=== PATIENT | female | born 1995 | race Caucasian/White ===

== ENCOUNTER 2020-12-19 02:31 | Outpatient (CLI) | payer OTHER, SELFPAY ==
[2020-12-19 18:38] LABS: SARS-CoV-2 RNA PCR Negative
== END 2020-12-19 02:32 | disposition home or self-care (01) ==
LOC: ANHCOVIDDT 02:31
PROVIDERS: Visit Provider Obstetrics & Gynecology
DX: N94.6 Dysmenorrhea, unspecified (principal); Z20.822 Contact with and (suspected) exposure to COVID-19; Z01.812 Encounter for preprocedural laboratory examination
CPT/HCPCS: C9803; U0003; U0005

== ENCOUNTER 2020-12-19 10:05 | Outpatient (CLI) | payer OTHER, SELFPAY ==
[2020-12-19 10:25] LABS: Basophils Absolute Auto 0.1 K/mm3 (0.0-0.1); Basophils Percent Auto 0.8 % (0.2-1.2); Eosinophils Absolute Auto 0.1 K/mm3 (0-0.3); Eosinophils Percent Auto 1.4 % (0-4.4); Hematocrit 39.6 % (37.0-47.0); Hemoglobin 12.8 g/dL (12.0-15.0); Immature Granulocyte Absolute 0.04 K/mm3 (0.00-0.031); Immature Granulocyte Percent A 0.6 % (0-0.5); Lymphocytes Absolute Auto 1.64 K/mm3 (0.9-3.2); Lymphocytes Percent Auto 25.2 % (18.3-44.2); Mean Corpuscular HGB Conc 32.3 g/dl (32-36); Mean Corpuscular Hemoglobin 27.8 pg (26-34); Mean Corpuscular Volume 86.1 fl (80-100); Mean Platelet Volume 11.4 fl (7.4-10.4); Monocytes Absolute Auto 0.4 K/mm3 (0.1-0.6); Monocytes Percent Auto 6.3 % (2.6-8.5); Neutrophils Absolute Auto 4.3 K/mm3 (1.3-6.7); Neutrophils Percent Auto 65.7 % (45.5-73.1); Platelet Count Result 282 k/mm3 (150-375); Red Cell Distribution Width 13.3 % (11.5-14.5); White Blood Count 6.5 K/mm3 (4.5-10.0)
== END 2020-12-19 10:06 | disposition home or self-care (01) ==
LOC: ANHSURGERY 10:09
PROVIDERS: PCP Family Medicine; Visit Provider Obstetrics & Gynecology
DX: N94.6 Dysmenorrhea, unspecified (principal); Z01.812 Encounter for preprocedural laboratory examination
CPT/HCPCS: 36415; 85025; 86850; 86900; 86901

== ENCOUNTER 2020-12-22 01:49 | Day surgery (SDC) | payer OTHER, SELFPAY ==
[2020-12-13 09:42] VITALS: BMI 20.9
--- NOTE | 2020-12-19 13:47 | PM.IMHP ---
H&P: HPI History of Present Illness Date/Time: 12/19/20 13:47 Chief Complaint: pain Narrative: Rhina Reese is a 25 year old female who is admitted for robotic hysterectomy bilateral salpingectomy. Patient has had 3 C sections and a tubal she has had chronic pain: Success for heavy bleeding in the colon the tolerated well the to blood pressures she opts for definitive therapy the hysterectomy risks and benefits reviewed full she had all questions answered asked to proceed Review of Systems Review of Systems: All systems reviewed & are unremarkable except as noted in HPI and below PMFSH Social History Social History Smoking status: Never smoker Second hand tobacco smoke exposure: No Alcohol intake: current Drinks per week: 1 Substance use: never Substance use type: does not use Spiritual care concerns: No Meds Home Medications and Allergies Home Medications Medication Instructions Recorded Confirmed Type desogestrel-ethinyl estradiol 0.15 tablet PO DAILY 12/13/20 12/13/20 History [Enskyce] Allergies Allergy/AdvReac Type Severity Reaction Status Date / Time NUTS Allergy Severe Swelling Uncoded 12/13/20 09:21 Exam Const: General: no acute distress Eyes: General: appearance normal, both eyes and all related structures Neck: Neck: supple and no JVD Thyroid: thyroid normal Resp: Effort & Inspection: normal respiratory effort Auscultation: clear to auscultation bilaterally Cardio: Rate: regular rate Rhythm: regular rhythm GI: Inspection: non-distended GI Palp: Yes Soft to palpation, No Tenderness to palpation present (GI) and No Guarding due to palpation present (GI) Auscultation: normal bowel sounds : General: Yes bladder normal to palpation External Female Exam: normal external appearance Speculum Exam - Vagina: normal vaginal discharge and No vaginal bleeding Speculum Exam - Cervix: nontender Bimanual exam- vagina & uterus: bladder normal to palpation and No Cervical tenderness present OB/external & speculum: No vaginal bleeding Skin: General skin exam: no rashes or lesions noted Extrem: General: normal to inspection and no edema Psych: Mental Status: mental status grossly normal Affect: normal affect Assessment and Plan Additional Plan impression:severe pelvic pain and dyspareunia refractory to medical therapy Plan: Robotic total hysterectomy and bilateral salpingectomies
[2020-12-22] VITALS (15 sets, daily range): BP systolic 99–134; BP diastolic 58–86; PULSE 55–100; RESP 11–20; TEMP 36.1–37.1; O2SAT 98–100
--- NOTE | 2020-12-22 06:27 | WPDHPUPDATE1 ---
History and Physical Update Update Date/Time: 12/22/20 06:27 History and Physical has been reviewed, including an updated exam of the patient. There are NO changes in the patient's condition. Risks, benefits, and alternatives have been discussed and questions answered. Patient agrees to proceed with procedure.
--- NOTE | 2020-12-22 08:15 | WPDANESEPPF ---
Anes - Initial Pre Proc Eval Procedure: Operation Date: 12/22/20 09:30 Proposed Procedures p Robotic Assisted Total Vaginal Hysterectomy With Bilateral Salpingectomy - Adrian Aldana MD Date/Time: 12/22/20 08:15 Surgeon: Adrian Aldana MD Pre Op Diagnosis: Uterine Prolapse, Irregular Bleeding Patient Data Age: 25 Gender: F Height: 5 ft 6 in Weight: 58.2 kg Last Vital Signs Temp 98.7 F 12/22/20 08:02 Pulse 100 12/22/20 08:02 Resp 20 12/22/20 08:02 BP 131/80 12/22/20 08:02 Pulse Ox 100 12/22/20 08:02 Allergies Allergy/AdvReac Type Severity Reaction Status Date / Time peanut Allergy Severe Swelling Verified 12/21/20 13:56 tree nut Allergy Severe Swelling Verified 12/21/20 13:56 NUTS Allergy Severe Swelling Uncoded 12/13/20 09:21 Home Medications Medication Instructions Recorded Confirmed Type desogestrel-ethinyl estradiol 0.15 tablet PO DAILY 12/13/20 12/13/20 History [Enskyce] hydrocodone-acetaminophen [[place]] 1 tablet PO Q4H PRN #30 tablet 12/22/20 Rx Patient hx anesthesia problems: none Family hx anesthesia problems: none PMFSH Past Medical History Medical History (Updated 12/22/20 @ 08:16 by Kuldeep Harry MD) Anxiety Migraine Social History Social History Smoking status: Never smoker Second hand tobacco smoke exposure: No Alcohol intake: current Drinks per week: 1 Substance use: never Substance use type: does not use Living arrangements: with family Spiritual care concerns: No Anes - Eval Final PreProcedure Day of Procedure 12/22/20 08:15 Patient weight: normal Heart: regular rate and rhythm Lungs: clear to auscultation Airway: Mallampati scale class II Neurological: alert and oriented Last oral intake: >/= 8 hours ASA classification: II Emergent: no Anesthetic plan: proceed Anesthesia type and monitoring: general ETT and standard monitoring Informed Consent: The patient's anesthetic plan and its attendant risks and benefits were discussed with the patient/family/POA. Questions were solicited and answers provided to the satisfaction of the patient/family/POA.
[2020-12-22] MEDS: ACETAMINOPHEN 500 MG TABLET 1000 MG PO (08:25)
[2020-12-22] MEDS: LACTATED RINGERS 1,000 ML 30 ML IV CONT ×2 (08:45→10:03)
[2020-12-22] MEDS: KETOROLAC 15 MG/ML VIAL (*BKC) IV PUSH (08:45)
[2020-12-22] MEDS: ceFAZolin 2 GM/D5W 50 ML 2 GM/50 ML BAG IVPB (08:50)
--- NOTE | 2020-12-22 09:57 | P.OP_ITS ---
Procedure Note - Detailed Date of procedure: 12/22/20 Pre-op diagnosis: Uterine Prolapse, Irregular Bleeding Surgeon: Adrian Aldana MD Postop diagnosis: Uterine prolapse/irregular bleeding Procedure: Robotic total vaginal hysterectomy and bilateral salpingectomies Anesthesia: General endotracheal EBL: 20cc Findings: Uterine prolapse tubes status post tubal ligation. Normal-appearing ovaries Complications: None Description of procedure: Patient was prepped and draped in the normal sterile fashion and placed in the dorsal lithotomy position. Under excellent general endotracheal anesthesia weighted speculum was placed in posterior fornix vagina. The anterior lip of the cervix was grasped with a single-tooth tenaculum. The uterus sounded to 9cm. Serial dilatation with fragmented dilators performed followed by passes 8. ELIZA and the 2. And half cold. A 16 Welsh catheter was placed bladder drained clear urine. The remainder the instruments removed. Gloves were changed. An supraumbilical incision made. Veress needle passed in the abdomen abdomen filled with CO2 gas [id number]. The 8mm trocar advanced in the abdomen. The downside visualized and no injury seen. The patient placed in Trendelenburg and right and left lateral quadrant incisions made. The 8mm trocars advanced under direct visualization assuring no injury. A right upper quadrant incision made in the 8mm trocar advanced under direct visualization assuring no injury. The robot was docked Attention was turned to the residential substance abuse counselor. The left round ligament was grasped, burned, cut. At bladder flap was formed by sharply dissecting the bladder and reflecting it caudally from the cervix and uterus to the opposite round ligament which was clamped, burned, cut. Next the left fallopian tube was dissected away using sharp dissection and scissors with cauterization. This was repeated on the contralateral side remove the right tube. The ovaries both appeared within normal limits. The utero-ovarian on the left was clamped, burned, cut and brought to the level of previously cut round ligament conserving the left ovary. The utero-ovarian ligament on the right was clamped, burned, and brought to the level of the previously cut round ligament conserving the right ovary. Next the left cardinal and broad ligaments were serially skeletonized. These were clamped, burned, cut and brought down the lateral edge of the cervix and uterus until the uterine vessels could be seen on the left. These were large and tortuous and individually clamped, burned, cut. On the right the cardinal broad ligaments were serially skeletonized. These were clamped, burned, cut and brought down to the level of the uterine vessels. When these could be visualized they were individually clamped, burned, cut and blanching of the uterus was seen a colpotomy incision was made the cervix uterus and tubes removed through the vagina. Blood loss estimated at20cc the vagina was then closed with continuous running 0V lock from lateral edge to lateral edge back to the midline. Irrigation undertaken to clear in all pedicles appeared dry. The robot was removed the gas removed from the abdomen the trocar sites removed and the incisions closed with 4 O Monocryl and glue. Blood loss was estimated at20cc all sponge, needle, instrument counts were correct. Patient was awakened and went to recovery in satisfactory condition there were no immediate complications
[2020-12-22] MEDS: HYDROmorphone HCL INJ (*CRX) 1 MG/ML SYR 0.5 MG IV PUSH ×3 (10:42→11:07)
--- NOTE | 2020-12-22 11:02 | SUR.PHASEI ---
110 sbar faxed floor notified
--- NOTE | 2020-12-22 11:25 | ADMGEN ---
This patient, Rhina Reese, was admitted to OB 2nd Floor Room 279-00. Patient/family oriented to hospital policies and general routines including ID bracelet, bed and alarms, visiting hours, pain management, procedures, bathroom and other care routines, personal items, smoking policy, room service/diet, and visiting hours. Information on how to activate the Rapid Response Team has been discussed. Patient/Family are encouraged to report perceived risks to care and to ask questions if they do not understand what they are told or what they should do.
[2020-12-22] MEDS: ONDANSETRON INJ 4 MG/2 ML VIAL IV PUSH (12:38)
[2020-12-22] MEDS: DEXTROSE 5%/LACTATED RINGERS 1,000 ML 125 ML IV CONT (12:40)
[2020-12-22] MEDS: SIMETHICONE 80 MG TAB.CHEW PO (12:42)
[2020-12-22] MEDS: DOCUSATE SODIUM 100 MG CAPSULE PO (17:39)
[2020-12-23 04:00] VITALS: BP 112/72; PULSE 66; RESP 16; TEMP 36.9; O2SAT 100
[2020-12-23 05:51] LABS: Basophils Percent Auto 0.3 % (0.2-1.2); Eosinophils Absolute Auto 0.1 K/mm3 (0-0.3); Eosinophils Percent Auto 0.8 % (0-4.4); Hemoglobin 10.9 g/dL (12.0-15.0); Immature Granulocyte Absolute 0.05 K/mm3 (0.00-0.031); Immature Granulocyte Percent A 0.5 % (0-0.5); Lymphocytes Absolute Auto 3.16 K/mm3 (0.9-3.2); Lymphocytes Percent Auto 28.4 % (18.3-44.2); Mean Corpuscular HGB Conc 32.1 g/dl (32-36); Mean Corpuscular Hemoglobin 27.7 pg (26-34); Mean Corpuscular Volume 86.3 fl (80-100); Mean Platelet Volume 12.3 fl (7.4-10.4); Monocytes Absolute Auto 0.8 K/mm3 (0.1-0.6); Monocytes Percent Auto 7.3 % (2.6-8.5); Neutrophils Percent Auto 62.7 % (45.5-73.1); Platelet Count Result 207 k/mm3 (150-375); Red Blood Count 3.94 M/mm3 (4.2-5.4); Red Cell Distribution Width 13.5 % (11.5-14.5); White Blood Count 11.1 K/mm3 (4.5-10.0)
[2020-12-23] MEDS: IBUPROFEN 600 MG TABLET PO (06:00)
--- NOTE | 2020-12-23 08:00 | PC.NURSE ---
Pt introductions made and plan of care discussed per post op director of development surgery, daily care activities, pain management, and pending discharge to home. PT verbalized understanding of such care.
[2020-12-23] MEDS: SIMETHICONE 80 MG TAB.CHEW PO (08:20)
[2020-12-23] MEDS: DOCUSATE SODIUM 100 MG CAPSULE PO (08:20)
[2020-12-23] MEDS: ENOXAPARIN 40 MG/0.4 ML SYRINGE SUB-Q (08:21)
[2020-12-23 08:32] VITALS: BP 115/74; PULSE 96; RESP 18; TEMP 37; O2SAT 100
--- NOTE | 2020-12-23 09:49 | P.PNAN_ITS ---
Anes - Prog Note Post-Op Date/Time: 12/23/20 09:49 Cardiovascular status: normal Respiratory status: normal Airway patency: baseline Mental status: baseline Post-Op hydration status: normal Vital Signs: Last Vital Signs Temp 37.0 C 12/23/20 08:32 Pulse 96 12/23/20 08:32 Resp 18 12/23/20 08:32 BP 115/74 12/23/20 08:32 Pulse Ox 100 12/23/20 08:32 Pain Score (VAS): 12/10 I/O: Intake & Output 12/22/20 12/23/20 12/23/20 23:59 07:59 15:59 Intake Total 787 Output Total 150 Balance 637 Laboratory Tests 12/23/20 03:53 12/23/20 03:53 WBC 11.1 H RBC 3.94 L Hgb 10.9 L Hct 34.0 L MCV 86.3 MCH 27.7 MCHC 32.1 RDW 13.5 Plt Count 207 MPV 12.3 H Immature Gran % (Auto) 0.5 Neut % (Auto) 62.7 Lymph % (Auto) 28.4 [place] % (Auto) 7.3 Eos % (Auto) 0.8 Baso % (Auto) 0.3 Lymph # (Auto) 3.16 [place] # (Auto) 0.8 H Eos # (Auto) 0.1 Baso # (Auto) 0.0 Abs Immat Gran (auto) 0.05 H Absolute Neuts (auto) 7.0 H Absolute Nucleated RBC 0.0 Nucleated RBC % 0.0 Post-procedural complaints: none Patient Feedback: Patient satisfied with anesthetic care.
--- NOTE | 2020-12-23 09:56 | PM.GYNPNOP ---
VOLUNTEER FIREFIGHTER - A/P Postoperative Procedures: Procedures Operation Date: 12/22/20 09:30 Actual Procedures Side Surgeon p Robotic Assisted Total Vaginal Hysterectomy With Bilateral Salpingectomy Adrian Aldana MD A: POD#1, doing well. P: Home to f/u 2 weeks. Time Spent With Patient Time with patient: less than 15 minutes V[employer]UNTEER FIREFIGHTER- PN:Subj Post-Op Subjective Date/time seen: 12/23/20 09:56 Interval history: Pain OK. Tolerating diet. Voiding. Would like to go home. Exam Narrative: Exam Narrative: AVSS I/O OK ABD soft, nontender. Incisions c/d/i. EXT nontender VOLUNTEER FIREFIGHTER - PN: Obj Data Vital Signs Vital Signs: Vital Signs - 24 hr 12/22/20 10:03 12/22/20 10:15 12/22/20 10:30 Temperature 36.1 C L Pulse Rate 72 55 L 76 Respiratory Rate 16 20 15 Blood Pressure 120/77 99/58 L 113/78 Pulse Oximetry 100 100 100 12/22/20 10:50 12/22/20 11:05 12/22/20 11:25 Temperature Pulse Rate 63 61 Respiratory Rate 12 11 L Blood Pressure 114/74 113/84 Pulse Oximetry 100 100 100 12/22/20 11:30 12/22/20 11:45 12/22/20 12:30 Temperature 36.6 C 36.8 C Pulse Rate 66 75 76 Respiratory Rate 16 16 16 Blood Pressure 119/84 122/80 134/86 Pulse Oximetry 100 100 100 12/22/20 13:00 12/22/20 14:00 12/22/20 15:00 Temperature 36.7 C Pulse Rate 97 84 82 Respiratory Rate 16 16 16 Blood Pressure 118/79 124/84 122/83 Pulse Oximetry 100 100 98 12/22/20 16:30 12/22/20 21:06 12/23/20 04:00 Temperature 36.7 C 36.9 C Pulse Rate 75 66 Respiratory Rate 16 14 16 Blood Pressure 115/66 112/72 Pulse Oximetry 100 100 100 12/23/20 08:32 Temperature 37.0 C Pulse Rate 96 Respiratory Rate 18 Blood Pressure 115/74 Pulse Oximetry 100 Intake/Output Intake/Output: Intake & Output 12/20/20 12/21/20 12/22/20 12/23/20 23:59 23:59 23:59 23:59 Intake Total 837 Output Total 350 Balance 487 Meds/Results Medications: Active Medications Generic Name Dose Route Start Last Admin Trade Name Freq PRN Reason Stop Dose Admin Hydrocodone Bitart/Acetaminophen 1 tab 12/22/20 11:21 Hydrocodone/Acetaminophen (*Crx) 5-325 Mg Tablet PO Q3H PRN Pain Rated 5 or Less Hydrocodone Bitart/Acetaminophen 1 tab 12/22/20 11:21 Hydrocodone/Acetaminophen (*Crx) 10-325 Mg Tablet PO Q3H PRN Pain Rated 6 or Greater Docusate Sodium 100 mg 12/22/20 17:00 12/23/20 08:20 Docusate Sodium 100 Mg Capsule PO 100 mg BID SOM Administration Enoxaparin Sodium 40 mg 12/23/20 09:00 12/23/20 08:21 Enoxaparin 40 Mg/0.4 Ml Syringe SUB-Q 40 mg DAILY SOM Administration Dextrose/Lactated Ringer's 1,000 mls @ 125 mls/hr 12/22/20 11:21 12/23/20 04:38 Dextrose 5%/Lactated Ringers IV CONT Not Given .Q8H SOM Ibuprofen 600 mg 12/22/20 11:21 12/23/20 06:00 Ibuprofen 600 Mg Tablet PO 600 mg Q6H PRN Administration Cramping Ketorolac Tromethamine 30 mg 12/22/20 11:21 Ketorolac 30 Mg/Ml Vial (*Bkc) IV PUSH 12/27/20 11:22 Q6H PRN Pain Rated 4-6 Morphine Sulfate 4 mg 12/22/20 11:21 Morphine Sulfate (*Crx) 4 Mg/Ml Inj IV PUSH Q4H PRN Severe breakthrough pain Naloxone HCl 0.1 mg 12/22/20 11:21 Naloxone Hcl 0.4 Mg/Ml Vial IV PUSH Q2M PRN Respiratory rate less than 10 Ondansetron HCl 4 mg 12/22/20 11:21 12/22/20 12:38 Ondansetron Inj 4 Mg/2 Ml Vial IV PUSH 4 mg Q6H PRN Administration Nausea And Vomiting Simethicone 80 mg 12/22/20 11:21 12/23/20 08:20 Simethicone 80 Mg Tab.Chew PO 80 mg Q2H PRN Administration Gas Labs CBC & Chem 7: 12/23/20 03:53 Labs: Laboratory Results - last 24 hr 12/23/20 03:53 WBC 11.1 H RBC 3.94 L Hgb 10.9 L Hct 34.0 L MCV 86.3 MCH 27.7 MCHC 32.1 RDW 13.5 Plt Count 207 MPV 12.3 H Immature Gran % (Auto) 0.5 Neut % (Auto) 62.7 Lymph % (Auto) 28.4 [place] % (Auto) 7.3 Eos % (Auto) 0.8 Baso % (Auto) 0.3 Lymph # (Auto) 3.16 [place]
--- NOTE | 2020-12-23 12:15 | PC.NURSE ---
PT received discharge instructions per protocol and pt verbalized understanding of such instructions.
--- NOTE | 2020-12-23 12:40 | PC.NURSE ---
PT discharged to home ambulatory to waiting vehicle. Follow up appts confirmed for 2 weeks
== END 2020-12-23 12:40 | disposition home or self-care (01) ==
LOC: ANHSURGERY 07:15 → ANHOB2 11:32
PROVIDERS: PCP Family Medicine; Visit Provider Obstetrics & Gynecology
PROC: (CPT 58552; principal; 2020-12-22 09:30)
DX: N81.4 Uterovaginal prolapse, unspecified (principal); N93.9 Abnormal uterine and vaginal bleeding, unspecified; N80.0 Endometriosis of uterus; N94.10 Unspecified dyspareunia; R10.2 Pelvic and perineal pain
CPT/HCPCS: 58552; S2900; 36415; 85025; 86850; 86900; 86901; 88307; 99199; A9270; C9803; J0330; J0690; J1170; J1650; J1885; J2250; J2405; J2704; J3010; J7030; J7120; J7121; U0003; U0005